=== PATIENT | male | born 1990 | race Caucasian/White ===

== ENCOUNTER 2016-08-28 10:50 | Emergency (ER) | payer MEDICAID, OTHER ==
[~2016-08-28] VITALS: Ht 180.3 cm; Wt 92.1 kg
[2016-08-28 11:08] VITALS: BP 127/79
[2016-08-28] MEDS ORDERED: TYLE325T5 PO (11:13)
[2016-08-28] MEDS ORDERED: ibuprofen PO (11:13)
[2016-08-28] MEDS ORDERED: HYDR-3713 PO (12:18)
[2016-08-28] MEDS ORDERED: AMOX500C PO (12:18)
== END 2016-08-28 12:50 | disposition home or self-care (01) ==
LOC: M ED 12:32
DX: K11.21 Acute sialoadenitis (principal); Z87.891 Personal history of nicotine dependence; Z88.5 Allergy status to narcotic agent

== ENCOUNTER 2017-03-28 22:25 | Emergency (ER) | payer OTHER ==
[~2017-03-28] VITALS: Ht 180.3 cm; Wt 94.1 kg
[~2017-03-28 22:25] MED LIST: AMOX500C PO; HYDR-3713 PO; TYLE325T5 PO; ibuprofen PO
[2017-03-28 22:29] VITALS: BP 143/89
[2017-03-28] MEDS ORDERED: NORCOTAB PO (23:54)
[2017-03-28] MEDS ORDERED: AUGM875T28 PO (23:54)
[2017-03-29] MEDS ORDERED: NORCO, ANEXSIA 5/325MG TABLET (HYDROcodone/ACETAMINOPHEN) PO ONE
[2017-03-29] MEDS ORDERED: AUGMENTIN 875 MG TAB PO ONE
== END 2017-03-29 00:19 | disposition home or self-care (01) ==
LOC: M ED 22:25
DX: K02.9 Dental caries, unspecified (principal); K08.89 Other specified disorders of teeth and supporting structures; F17.210 Nicotine dependence, cigarettes, uncomplicated; Z88.8 Allergy status to other drugs, medicaments and biological substances

== ENCOUNTER 2017-04-18 19:19 | Emergency (ER) | payer OTHER ==
[~2017-04-18] VITALS: Ht 180.3 cm; Wt 94.1 kg
[2017-04-18 19:19] VITALS: BP 137/78
[~2017-04-18 19:19] MED LIST changes: +AUGM875T28 PO; +NORCOTAB PO
== END 2017-04-19 01:49 | disposition left against medical advice (07) ==
LOC: M ED 19:19
DX: Z53.21 Procedure and treatment not carried out due to patient leaving prior to being seen by health care provider (principal)

== ENCOUNTER → 2017-05-20 | Outpatient (CLI) | payer OTHER | LOC: M RAD 13:40 | DX: J32.4 Chronic pansinusitis (principal) | CPT/HCPCS: 70486 ==

== ENCOUNTER 2017-10-17 07:20 | Day surgery (SDC) | payer OTHER ==
[2017-10-17] MEDS ORDERED: LIDOCAINE 1% MDV 20ML VIAL SQ (07:30)
[2017-10-17] MEDS ORDERED: LIDOCAINE 2% INJ 100 MG/5 ML SDV (FOR ANES.) As Ordered (09:33)
[2017-10-17] MEDS ORDERED: ROCURONIUM BROMIDE 50 MG/5 ML VIAL As Ordered (09:33)
[2017-10-17] MEDS ORDERED: dexameTHASONE 4 MG/ML 1ML VIAL (J1100) As Ordered (09:33)
[2017-10-17] MEDS ORDERED: fentaNYL 250 MCG/5 ML INJECTION (J3010) As Ordered (09:33)
[2017-10-17] MEDS ORDERED: MIDAZOLAM INJ 2 MG/2 ML VIAL (J2250) As Ordered (09:33)
[2017-10-17] MEDS ORDERED: PROPOFOL 200 MG/20 ML VIAL As Ordered (09:33)
[2017-10-17] MEDS ORDERED: ONDANSETRON 4MG/2ML VIAL (J2405) As Ordered (09:33)
[2017-10-17] MEDS: LIDOCAINE W/EPINEPHRINE 1% 20ML VIAL As Ordered (09:35)
[2017-10-17] MEDS ORDERED: NEOSTIGMINE 10 MG/10 ML VIAL (J2710) As Ordered (09:48)
[2017-10-17] MEDS ORDERED: GLYCOPYRROLATE INJ 0.2 MG/ML 2 ML VIAL As Ordered ×2 (09:48)
[2017-10-17] MEDS: CIPRODEX OTIC SUSP 7.5ML As Ordered (10:15)
[2017-10-17] MEDS ORDERED: fentaNYL 100 MCG/2 ML INJECTION (J3010) As Ordered (12:25)
[2017-10-17] MEDS: EPINEPHrine 1MG/ML INJ 30ML MD-VIAL As Ordered (12:52)
[2017-10-17] MEDS ORDERED: fentaNYL 100 MCG/2 ML INJECTION (J3010) IV (13:45)
[2017-10-17] MEDS ORDERED: ACETAMINOPH W/CODEINE #3 TAB UD PO (13:45)
[2017-10-17] MEDS ORDERED: LR 1,000 ML IV ×2 (13:45)
[2017-10-17] MEDS ORDERED: PERCOCET 5MG/325MG TAB PO (13:45)
[2017-10-17] MEDS: ONDANSETRON 4MG/2ML VIAL (J2405) IV (13:48)
[2017-10-17] MEDS ORDERED: METOCLOPRAMIDE INJ 10MG/2ML VIAL (J2765) As Ordered (14:43)
[2017-10-17] MEDS: METOCLOPRAMIDE INJ 10MG/2ML VIAL (J2765) IV (14:45)
== END 2017-10-17 15:26 | disposition home or self-care (01) ==
LOC: M SDC 07:20
DX: H65.21 Chronic serous otitis media, right ear (principal); H60.41 Cholesteatoma of right external ear; Z88.8 Allergy status to other drugs, medicaments and biological substances; H71.21 Cholesteatoma of mastoid, right ear
CPT/HCPCS: 69641

== ENCOUNTER 2018-01-07 15:09 | Emergency (ER) | payer OTHER, SELFPAY | END 2018-01-07 16:07 | disposition home or self-care (01) | LOC: M ED 15:09 | DX: H66.004 Acute suppurative otitis media without spontaneous rupture of ear drum, recurrent, right ear (principal); Z87.2 Personal history of diseases of the skin and subcutaneous tissue; Z88.8 Allergy status to other drugs, medicaments and biological substances; Z79.899 Other long term (current) drug therapy | CPT/HCPCS: 99282 ==

== ENCOUNTER 2018-02-01 20:03 | Emergency (ER) | payer OTHER ==
[2018-02-01] MEDS: IBUPROFEN 800 MG TAB PO (22:18)
[2018-02-01] MEDS: DOXYCYCLINE HYCLATE 100 MG TAB PO (23:24)
== END 2018-02-01 23:27 | disposition home or self-care (01) ==
LOC: M ED 20:03
DX: L03.115 Cellulitis of right lower limb (principal); Z87.891 Personal history of nicotine dependence; Z88.8 Allergy status to other drugs, medicaments and biological substances
CPT/HCPCS: 73564